=== PATIENT | female | born 2000 | race Caucasian/White ===

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

== ENCOUNTER 2021-01-15 07:25 | Day surgery (SDC) | payer MEDICAID ==
[2021-01-15] MEDS ORDERED: Dextrose 5%-Lactated Ringers 1,000 ML IV SCH (07:30)
[2021-01-15] MEDS ORDERED: Meropenem 500 MG in Sodium Chloride 0.9% 50 ML IV ONE (08:30)
[2021-01-15] MEDS ORDERED: Lidocaine 1% with EPINEPHrine 1:100,000 50 ML MDV ONE (08:34)
[2021-01-15] MEDS ORDERED: Bupivacaine 0.5% 50 ML MDV ONE (08:34)
[2021-01-15] MEDS ORDERED: Bacitracin Oint 1 GM U/D Packet ONE (08:34)
[2021-01-15] MEDS ORDERED: Propofol 200 MG/20 ML SDV ONE ×3 (09:08→10:07)
[2021-01-15] MEDS ORDERED: fentaNYL 100 MCG/2 ML SDV ONE ×3 (09:08→10:34)
[2021-01-15] MEDS ORDERED: Midazolam 1 MG/ML 2 ML SDV ONE ×2 (09:08)
[2021-01-15] MEDS ORDERED: Ketoconazole 2% Crm 30 GM Tube TOP ONE (10:45)
[2021-01-15] MEDS ORDERED: Ketorolac 30 MG/ML SDV IM ONE (10:48)
[2021-01-15] MEDS ORDERED: Ketorolac 30 MG/ML SDV IVPUSH ONE (10:50)
[2021-01-15] MEDS ORDERED: Ondansetron 4 MG/2 ML SDV IVPUSH ONE (11:23)
[2021-01-15] MEDS ORDERED: fentaNYL 250 MCG/5 ML SDV ONE (11:27)
[2021-01-15 11:50] VITALS: BP 103/45; PULSE 57
--- NOTE | 2021-01-16 16:25 | OR ---
DATE OF PROCEDURE: 01/15/2021 SURGEON: Aashish Ash MD PREOPERATIVE DIAGNOSIS: Hidradenitis suppurativa, left axilla. POSTOPERATIVE DIAGNOSIS: Hidradenitis suppurativa, left axilla. PROCEDURE: Excision of hidradenitis suppurativa, left axilla (83998). ANESTHESIA: Local plus IV sedation. INDICATIONS FOR PROCEDURE: The patient presents with some recurrent hidradenitis suppurativa in the left axillary area. Plan is to proceed with excision of this area including the area of previous underlying scar. Potential risks including bleeding, infection, or possible recurrence of the problem over time were reviewed. That we are planning to leave the incision open given the extent and nature of the field at this point was gone over, and the patient wishes to proceed. DETAILS OF PROCEDURE: The patient was taken to the operating room, placed in a supine position. IV sedation was administered after which the left axilla was then prepped and draped. Elliptical incision removing the previous incision in that area as well as the area of the open wound was then made and carried down through the skin and subcutaneous tissue. The wound had been anesthetized with 1% lidocaine mixed with Marcaine. All the subcutaneous tissue which could be involved with hidradenitis was then removed with remaining soft tissues all being clean in appearance. Hemostasis was confirmed and wound then packed with iodoform gauze. The lesion plus margin length in this case was 10 cm. The patient was taken to the recovery room in satisfactory condition. Aashish Ash MD Job #: [id number]
== END 2021-01-15 12:22 | disposition home or self-care (01) ==
LOC: JP.SDS 07:25
PROVIDERS: ATTEND Surgery
DX: L73.2 Hidradenitis suppurativa (principal); L83 Acanthosis nigricans; L90.5 Scar conditions and fibrosis of skin; Z88.5 Allergy status to narcotic agent
CPT/HCPCS: 11450; 81025; A9270; J1885; J2185; J2250; J2405; J2704; J3010; J3490; J7121

== ENCOUNTER 2021-04-01 07:15 | Day surgery (SDC) | payer MEDICAID ==
[~2021-04-01 07:15] MED LIST changes: +Bupivacaine 0.5% 30 ML SDV ONE; -Bupivacaine 0.5% 50 ML MDV ONE; +Dexamethasone 4 MG/ML SDV ONE; +Glycopyrrolate 0.2 MG/ML 5 ML MDV ONE; +Neostigmine Methylsulfate 1 MG/ML 5 ML Syringe ONE; +Ondansetron 4 MG/2 ML SDV ONE; +Propofol 200 MG/20 ML SDV ONE; +Rocuronium 50 MG/5 ML Vial ONE; +Succinylcholine 200 MG/10 ML MDV ONE; +fentaNYL 250 MCG/5 ML SDV ONE
[2021-04-01] MEDS ORDERED: Dextrose 5%-Lactated Ringers 1,000 ML IV SCH (08:15)
[2021-04-01] MEDS ORDERED: Meropenem 500 MG in Sodium Chloride 0.9% 50 ML IV ONE (09:15)
[2021-04-01] MEDS ORDERED: Bupivacaine 0.5%/EPINEPHrine 1:200,000 50 ML MDV ONE (09:15)
[2021-04-01] MEDS ORDERED: Bacitracin Oint 1 GM U/D Packet ONE (09:16)
[2021-04-01] MEDS ORDERED: fentaNYL 100 MCG/2 ML SDV ONE (09:34)
[2021-04-01] MEDS ORDERED: Sugammadex Sodium 200 MG/2 ML VIAL ONE (09:47)
[2021-04-01] MEDS ORDERED: Ketoconazole 2% Crm 30 GM Tube ONE (09:48)
[2021-04-01] MEDS ORDERED: Ondansetron 4 MG/2 ML SDV IVPUSH ONE (10:03)
[2021-04-01] MEDS ORDERED: hydrOXYzine HCL 100 MG/2 ML SDV IM ONE (10:05)
[2021-04-01] MEDS ORDERED: HYDROmorphone 2 MG Tab PO ONE (12:00)
[2021-04-01] MEDS ORDERED: Naloxone 0.4 MG/ML SDV IVPUSH PRN (13:30)
[2021-04-01 14:29] VITALS: BP 123/63; PULSE 62
== END 2021-04-01 14:30 | disposition home or self-care (01) ==
LOC: JP.SDS 07:15
PROVIDERS: ATTEND Surgery
DX: L73.2 Hidradenitis suppurativa (principal); E66.01 Morbid (severe) obesity due to excess calories; E55.9 Vitamin D deficiency, unspecified; Z98.890 Other specified postprocedural states; Z87.891 Personal history of nicotine dependence; Z79.899 Other long term (current) drug therapy; Z88.5 Allergy status to narcotic agent
CPT/HCPCS: 11450; 36415; 38999; 80053; 81025; 85027; A9270; J0330; J1100; J2185; J2310; J2405; J2704; J2710; J3010; J3410; J3490; J7121

== ENCOUNTER 2021-04-09 14:56 | Emergency (ER) | payer MEDICAID ==
[2021-04-09 15:47] VITALS: BP 122/82; PULSE 92
== END 2021-04-09 17:30 | disposition home or self-care (01) ==
LOC: JP.ED 14:56
DX: Z48.01 Encounter for change or removal of surgical wound dressing (principal); E66.9 Obesity, unspecified; Z68.41 Body mass index [BMI] 40.0-44.9, adult; Z88.5 Allergy status to narcotic agent; Z72.0 Tobacco use
CPT/HCPCS: 99282; 99283